=== PATIENT | male | born 1980 | race Caucasian/White ===

== ENCOUNTER 2017-05-04 13:47 | Emergency (ER) | payer SELFPAY ==
[2017-05-04 13:58] VITALS: BP 143/99; PULSE 71; TEMP 98.4; BMI 31.7
--- NOTE | 2017-05-04 13:59 | PDOC ---
Rapid Medical Evaluation Time Seen by Provider: 05/04/17 13:57 Medical Evaluation: 05/04/17 13:58 RME: 36 yr male with c/o dizzyness today from bending down to standing up position. neg nvd neg fever no PMHX no recent travel stable vitals
[2017-05-04] MEDS ORDERED: ONDANSETRON 4 MG/2 ML VIAL IVPUSH ONE (15:48)
[2017-05-04] MEDS ORDERED: SODIUM CHLORIDE 0.9% 500 ML INFUS.BAG IV ONE (15:48)
[2017-05-04] MEDS ORDERED: FAMOTIDINE 20 MG/50 ML IVPB 20 MG/50 ML MG IVPB ONE (15:48)
[2017-05-04] MEDS ORDERED: ONDANSETRON 4 MG/2 ML VIAL ONE (15:55)
--- NOTE | 2017-05-04 16:09 | PDOC ---
History of Present Illness <Zach Rojas - Last Filed: 05/04/17 17:45> - General History Source: Patient Exam Limitations: No Limitations - History of Present Illness Initial Comments: 05/04/17 16:41 The patient is a 36 year old male, with no significant past medical history who presents to the emergency department with epigastric pain and lightheadedness today. Patient describes epigastric pain as burning sensation, non radiating with associated nausea and dizziness. Patient reports being lightheaded today when he stood from a squatting position at workbut denies current lightheadedness. Reports the lightheadedness lasted for a few seconds and resolved. Patient reports having 4-5 beers last night and reports this might be the cause of his epigastric pain. He denies chest pain, headache. He denies fever, chills, vomit, diarrhea or constipation or dark stools. He denies dysuria, frequency, urgency or hematuria. Patient denies sick contacts or recent travel. Allergies: NKA Past surgical history: none Social history: Social EtOH use, no cigarette or IVDA. Works in construction PCP: At [address] [place] [address] <Vivien Ken - Last Filed: 05/04/17 17:46> - General Chief Complaint: Lightheaded Stated Complaint: HEADACHE Time Seen by Provider: 05/04/17 13:57 Past History - Past Medical History COPD: No - Suicide/Smoking/Psychosocial Hx Smoking History: Never smoked Hx Alcohol Use: No Drug/Substance Use Hx: No Substance Use Type: None <Zach Rojas - Last Filed: 05/04/17 17:45> <Vivien Ken - Last Filed: 05/04/17 17:46> - Past Medical History Allergies/Adverse Reactions: Allergies Allergy/AdvReac Type Severity Reaction Status Date / Time No Known Allergies Allergy Verified 05/04/17 13:58 Home Medications: Ambulatory Orders NK [No Known Home Medication] 05/04/17 Review of Systems - Review of Systems Able to Perform ROS?: Yes Comments:: 05/04/17 16:41 GENERAL/CONSTITUTIONAL: No fever or chills. No weakness. +Lightheadedness. HEAD, EYES, EARS, NOSE AND THROAT: No change in vision. No ear pain or discharge. No sore throat. CARDIOVASCULAR: No chest pain or shortness of breath. RESPIRATORY: No cough, wheezing, or hemoptysis. GASTROINTESTINAL: + abdominal pain. + nausea. No vomiting, diarrhea or constipation. GENITOURINARY: No dysuria, frequency, or change in urination. MUSCULOSKELETAL: No joint or muscle swelling or pain. No neck or back pain. SKIN: No rash NEUROLOGIC: No headache, vertigo, loss of consciousness, or change in strength/ sensation. ENDOCRINE: No increased thirst. No abnormal weight change. HEMATOLOGIC/LYMPHATIC: No anemia, easy bleeding, or history of blood clots. ALLERGIC/IMMUNOLOGIC: No hives or skin allergy. <Vivien Ken - Last Filed: 05/04/17 17:46> *Physical Exam - Vital Signs Last Vital Signs Temp Pulse Resp BP Pulse Ox 98.4 F 71 20 143/99 96 05/04/17 13:55 05/04/17 13:55 05/04/17 13:55 05/04/17 13:55 05/04/17 13:55 <Zach Rojas - Last Filed: 05/04/17 17:45> - Vital Signs Last Vital Signs Temp Pulse Resp BP Pulse Ox 98.4 F 71 20 143/99 96 05/04/17 13:55 05/04/17 13:55 05/04/17 13:55 05/04/17 13:55 05/04/17 13:55 - Physical Exam Comments: 05/04/17 16:41 GENERAL: Awake, alert, and fully oriented, in no acute distress HEAD: No signs of trauma EYES: PERRLA, EOMI, sclera anicteric, conjunctiva clear ENT: Auricles normal inspection, hearing grossly normal, nares patent, oropharynx clear without exudates. Moist mucosa NECK: Normal ROM, supple, no lymphadenopathy, JVD, or masses LUNGS: Breath sounds equal, clear to auscultation bilaterally. No wheezes, and no crackles HEART: Regular rate and rhythm, normal S1 and S2, no murmurs, rubs or gallops ABDOMEN: Soft, nontender, normoactive bowel sounds. No guarding, no rebound. No masses EXTREMITIES: Normal range of motion, no edema. No clubbing or cyanosis. No cords, erythema, or tenderness NEUROLOGICAL: Normal speech, cranial nerves intact, negative pronator drift, 5/ 5 strength in all 4 extremities, normal sensation to light touch in all 4 extremities, normal cerebellar exam, normal gait, normal reflexes and tone SKIN: Warm, Dry, normal turgor, no rashes or lesions noted. <Vivien Ken - Last Filed: 05/04/17 17:46> Heart Score/ECG Review #1 05/04/17 17:08 Twelve-lead EKG was performed and reviewed by me. Normal sinus rhythm, rate 74. Normal axis. Normal intervals. No ST elevations. <Zach Rojas - Last Filed: 05/04/17 17:45> ED Treatment Course - LABORATORY CBC & Chemistry Diagram: 05/04/17 16:30 05/04/17 16:30 <Zach Rojas - Last Filed: 05/04/17 17:45> - LABORATORY CBC & Chemistry Diagram: 05/04/17 16:30 05/04/17 16:30 - Medications Given in the ED: ED Medications Discontinued Medications Generic Name Dose Route Start Last Admin Trade Name Goldy PRN Reason Stop Dose Admin Famotidine/Sodium Chloride 20 mg in 50 mls @ 100 mls/hr 05/04/17 15:48 16:12 Pepcid 20 Mg Premixed Ivpb - IVPB 05/04/17 16:17 100 mls/hr ONCE ONE Administration Ondansetron HCl 4 mg 05/04/17 15:48 05/04/17 16:12 Zofran Injection IVPUSH 05/04/17 15:49 4 mg ONCE ONE Administration Sodium Chloride 1,000 ml 05/04/17 15:48 05/04/17 16:12 Normal Saline - IV 05/04/17 15:49 1,000 ml ONCE ONE Administration <Vivien Ken - Last Filed: 05/04/17 17:46> Medical Decision Making - Medical Decision Making 05/04/17 17:05 36-year-old male with no significant past medical history presents with lightheadedness after standing from a squatting position at work today. Patient also reports epigastric burning pain after drinking 4-5 beers last night. Likely gastritis with possible dehydration. Will obtain labs to rule out pancreatitis and metabolic disarray. Will hydrate in the meantime and give Pepcid for pain control. 05/04/17 17:43 Labs unremarkable. Patient feels better and is asymptomatic. Orthostatic vital signs are within normal limits. I discussed the physical exam findings, ancillary test results and final diagnoses with the patient. I answered all of the patient's questions. The patient was satisfied with the care received and felt comfortable with the discharge plan and treatment plan. The patient will call their primary care physician within 24 hours to arrange follow-up and will return to the Emergency Department with any new, persistent or worsening symptoms. <Zach Rojas - Last Filed: 05/04/17 17:45> *DC/Admit/Observation/Transfer - Discharge Dispostion Admit: No <Zach Rojas - Last Filed: 05/04/17 17:45> - Attestations Scribe Attestion: 05/04/17 16:41 Documentation prepared by Vivien Ken, acting as medical records assistant for Zach Rojas MD, <Vivien Ken - Last Filed: 05/04/17 17:46> Diagnosis at time of Disposition: Lightheaded - Discharge Dispostion Disposition: HOME Condition at time of disposition: Stable - Patient Instructions Printed Discharge Instructions: DI for Alcoholic Gastritis Additional Instructions: Follow-up with your primary care doctor at [address] [place] [address] within 1 week. Return to the emergency department if you have any new, worsening, or concerning symptoms. Print Language: SURINAMESE
[2017-05-04 16:33] LABS: MCH 30.9 pg (25.7-33.7); MCHC 34.4 g/dl (32.0-35.9); MEAN CELL VOLUME 89.7 fl (80-96); MEAN PLT VOLUME 10.3 fl (7.5-11.1); PLATELET COUNT 210 K/MM3 (134-434); RDW 13.3 % (11.9-15.9); WHITE BLOOD COUNT 8.6 K/mm3 (4.0-10.0)
[2017-05-04 17:16] LABS: ALBUMIN 4.3 g/dl (3.4-5.0); ANION GAP 7 (8-16); CALCIUM 9.4 mg/dL (8.5-10.1); CO2 29 mmol/L (21-32); GLUCOSE,RANDOM 102 mg/dL (74-106)
[2017-05-04 17:19] LABS: ALK PHOS 91 U/L (45-117); BILIRUBIN,TOTAL 0.5 mg/dL (0.2-1.0); CREATININE 0.9 mg/dL (0.7-1.3); SGOT/AST 26 U/L (15-37); SGPT/ALT 53 U/L (12-78); TOT PROT 8.1 g/dl (6.4-8.2)
[2017-05-04 18:57] LABS: PLATELET ESTIMATE ADEQUATE
--- NOTE | 2017-05-12 13:07 | EKG ---
Test Reason : Blood Pressure : / mmHG Vent. Rate : 074 BPM Atrial Rate : 074 BPM P-R Int : 170 ms QRS Dur : 100 ms QT Int : 384 ms P-R-T Axes : 047 -09 -04 degrees QTc Int : 426 ms NORMAL SINUS RHYTHM CANNOT RULE OUT ANTERIOR INFARCT , AGE UNDETERMINED ABNORMAL ECG NO PREVIOUS ECGS AVAILABLE Confirmed by YOGI VENTURA MD ([id number]) on 05/12/2017 1:06:53 PM Referred By: Confirmed By:YOGI VENTURA MD
== END 2017-05-04 17:55 | disposition home or self-care (01) ==
LOC: JER 13:47
PROC: 3E033GC Introduction of Other Therapeutic Substance into Peripheral Vein, Percutaneous Approach (ICD-10-PCS; principal; 2017-05-04)
PROC: 3E033GC Introduction of Other Therapeutic Substance into Peripheral Vein, Percutaneous Approach (ICD-10-PCS; 2017-05-04)
DX: K29.20 Alcoholic gastritis without bleeding (principal); R42 Dizziness and giddiness
CPT/HCPCS: 36415; 80053; 83690; 83735; 84484; 85025; 93005; 93010; 99282-25

== ENCOUNTER 2021-11-28 14:05 | Emergency (ER) | payer OTHER ==
[2021-11-28 14:13] VITALS: BP 159/93; PULSE 96; BMI 34.3
[2021-11-28] MEDS ORDERED: DOXYCYCLINE HYCLATE 100 MG CAPSULE PO ONE ×2 (16:04→16:43)
[2021-11-28] MEDS ORDERED: ACETAMINOPHEN 500 MG TABLET (FP) PO ONE (16:31)
[2021-11-28] MEDS ORDERED: ACETAMINOPHEN 500 MG TABLET (FP) ONE (16:45)
[2021-11-28 17:26] VITALS: TEMP 98.9
[2021-12-01 14:09] LABS: BABESIA MICROTI ANTIBODY IGG <1:10 (Neg:<1:10); BABESIA MICROTI ANTIBODY IGM <1:10 (Neg:<1:10)
== END 2021-11-28 18:55 | disposition home or self-care (01) ==
LOC: JER 14:05
DX: R50.9 Fever, unspecified (principal); R53.1 Weakness; R53.83 Other fatigue
CPT/HCPCS: 0241U-QW; 36415; 82930; 86618; 86753; 99283-25